=== PATIENT | female | born 1940 | race Caucasian/White ===

== ENCOUNTER → 2022-10-14 15:09 | Outpatient (BNVA) | payer MEDICARE, SELFPAY | PROVIDERS: Visit Provider Orthopaedic Surgery | DX: M75.101 Unspecified rotator cuff tear or rupture of right shoulder, not specified as traumatic (principal) | CPT/HCPCS: 73030; 99203 ==

== ENCOUNTER 2022-11-19 16:05 | Observation (INO) | payer MEDICARE, MEDICAID, SELFPAY ==
[2022-11-18 09:55] VITALS: BMI 35.2
[2022-11-19] VITALS (25 sets, daily range): BP systolic 112–181; BP diastolic 58–104; PULSE 69–90; RESP 13–22; TEMP 36.1–36.6; O2SAT 88–96
[2022-11-19] MEDS: gabapentin 300 mg Capsule PO (09:46)
[2022-11-19] MEDS: sodium chloride 0.9% 1,000 ML 30 ML IV (09:46)
[2022-11-19] MEDS: CELEcoxib 200 mg Capsule 400 MG PO (09:46)
[2022-11-19] MEDS: acetaminophen 500 mg Tablet 1000 MG PO (09:46)
[2022-11-19] MEDS: oxyCODONE 20 mg ER (12 HR) Tablet PO (09:46)
--- NOTE | 2022-11-19 10:10 | W.PM.OPSFHP ---
Same Day Surgery H&P Indication for Procedure/HPI DATE OF PROCEDURE: November 19, 2022 CHIEF COMPLAINT/INDICATIONFOR SURGICAL PROCEDURE: Tear right rotator cuff PREOP DIAGNOSIS: Right rotator cuff tear PLANNED PROCEDURE: Operation Date: 11/19/22 09:55 Proposed Procedures p Shoulder Arthroscopy(Right) - Dieudonne Villanueva MD Mary Luu is a new 81 year old female patient who is here today due to right shoulder pain. Patient has has 3 falls in the last 6 years which has increased her pain with her right shoulder initially falling 6 years ago with a garden and landed hard on her right shoulder.? She described severe pain.? Initially a rotator cuff tear was considered however she improved and chose not to proceed with surgery.? She states that approximately 3 months ago she developed increasing pain.? An MRI was obtained in [place]?on09/02/2022 [facility].? The patient has a moderate-sized retracted full-thickness tear of the supraspinatus tendon.? The radiologist describes the tear approximately 1.5 cm from anterior to posterior with additional tendinopathy of the subscapularis and infraspinatus.? I agree with this assessment.? There is approximately 2 cm of tendon retraction.?? He has been counseled and wants to proceed with rotator cuff repair. She understands the limitations of her age and chronicity of the tear. Medications/Allergies* Home Medications Medication Instructions Recorded Confirmed Type levothyroxine 125 mcg capsule 125 mcg PO DAILY 10/14/22 11/18/22 History naproxen 500 mg tablet 500 mg PO BID 10/14/22 11/19/22 History alendronate 70 mg tablet 70 mg PO DAILY 11/18/22 11/18/22 History aspirin 81 mg tablet,delayed 81 mg PO DAILY 11/18/22 11/18/22 History release ezetimibe 10 mg tablet 10 mg PO DAILY 11/18/22 11/18/22 History gabapentin 100 mg capsule 100 mg PO 11/18/22 History hydrochlorothiazide 12.5 mg tablet 12.5 mg PO DAILY 11/18/22 11/18/22 History ropinirole 1 mg tablet 1 mg PO DAILY 11/18/22 11/18/22 History rosuvastatin 40 mg tablet 40 mg PO DAILY 11/18/22 11/18/22 History pantoprazole 40 mg tablet,delayed 40 mg PO DIRECTED 11/19/22 11/19/22 History release Allergies/Adverse Reactions Allergy/AdvReac Type Severity Reaction Status Date / Time tramadol Allergy ADR-Nausea Verified 11/19/22 08:55 Current Medications: Generic Name Dose Route Start Last Admin Trade Name Dario PRN Reason Stop Dose Admin Sodium Chloride 1,000 mls @ 30 mls/hr 11/19/22 08:45 11/19/22 09:46 Sodium Chloride 0.9% IV 11/20/22 08:44 30 mls/hr .Q24H JANET Administration Pertinent History/Comorbid Conditions* Social History Smoking and tobacco status: never smoked Second hand smoke exposure: No Smoking risk assessment/counseling performed?: No Alcohol intake: never Desire information about alcohol rehabilitation?: No Counseling given: No Substance/Drug Use: never Desire information about substance/drug rehabilitation?: No Counseling given: No Adopted: No Caregiver/support person: No Lives independently: Yes Household members: family Housing: House Number of children: 5 Number of grandchildren: 27 Highest education level completed: 8th Grade service: No Current occupational status: disabled Current occupational exposures/hazards: No Pets and animals: No Sexually active: No Do you think of yourself as: Straight/Heterosexual Current gender identity: Female Special jose juan needs: No Agree to transfusion: No Pertinent Exam Findings alert, oriented x 3, clear to auscultation bilaterally, regular rate & rhythm and operative site marked SHOULDER :? Right shoulder Tenderness anterior and lateral subacromial space ?RANGE OF MOTION:? EXAMINED EXTREMITY ? Flexion: 160 ? External Rotation: 60 ? Abduction External Rotation: 90 ? Abduction Internal Rotation ? 70 ? Pain with all extremes of motion?ROTATOR CUFF STRENGTH: ? EXAMINED EXTREMITY ? Abduction Supination: Weak with pain ? Abduction Pronation: Weak with t pain ? External Rotation: Good without pain ? Belly Press: Negative ?VASCULAR: ?Strong radial pulses bilaterally. Recommendations Surgery/Procedure today Coding Level of Care Code Acute Code for Chg Fwd Diagnoses
--- NOTE | 2022-11-19 10:14 | ANES.PREANE2 ---
Pre-Anesthetic Assessment Height/Weight: Height 1.52 m Weight 81.647 kg Temp Pulse Resp BP Pulse Ox O2 Del Method 97.8 F 80 16 165/104 94 Room Air 11/19/22 09:05 11/19/22 09:05 11/19/22 09:05 11/19/22 09:05 11/19/22 09:05 11/19/22 09:10 Preop Diagnosis: Right rotator cuff tear Operation Date: 11/19/22 09:55 Proposed Procedures p Shoulder Arthroscopy(Right) - Dieudonne Villanueva MD Familial anesthetic complications: None Was Beta Earnestine taken within 24 hours: N/A Was Clonidine taken within 24 hours: N/A Last intake: Intake Last Liquid Date 11/18/22 Last Liquid Time 23:00 Last Solid Date 11/18/22 Last Solid Time 21:00 Social No alcohol and No tobacco Exam alert, oriented x 3, clear to auscultation bilaterally and regular rate & rhythm Airway Mallampati: Class II Dentition: full CV/HEM Hypertension GI Gastroesophageal Reflux Disease Metabolic Hyperlipidemia and Thyroid Disease Anesthetic Plan ASA status: 3 Anesthesia: General and Regional (specify below) Risk of > 500 ml blood loss (7ml/kg in children): No Medications/Allergies Home Medications Medication Instructions Recorded Confirmed Last Taken Type levothyroxine 125 mcg capsule 125 mcg PO DAILY 10/14/22 11/18/22 11/18/22 07:00 History naproxen 500 mg tablet 500 mg PO BID 10/14/22 11/19/22 11/17/22 History power lift chair #1 ea 10/28/22 Unknown Rx alendronate 70 mg tablet 70 mg PO DAILY 11/18/22 11/18/22 11/18/22 History aspirin 81 mg tablet,delayed 81 mg PO DAILY 11/18/22 11/18/22 11/18/22 History release ezetimibe 10 mg tablet 10 mg PO DAILY 11/18/22 11/18/22 11/17/22 History gabapentin 100 mg capsule 100 mg PO 11/18/22 11/17/22 History hydrochlorothiazide 12.5 mg tablet 12.5 mg PO DAILY 11/18/22 11/18/22 11/17/22 History ropinirole 1 mg tablet 1 mg PO DAILY 11/18/22 11/18/22 11/17/22 History rosuvastatin 40 mg tablet 40 mg PO DAILY 11/18/22 11/18/22 11/17/22 History pantoprazole 40 mg tablet,delayed 40 mg PO DIRECTED 11/19/22 11/19/22 Unknown History release Allergies Allergy/AdvReac Type Severity Reaction Status Date / Time tramadol Allergy ADR-Nausea Verified 11/19/22 08:55 Current Medications Generic Name Dose Route Start Last Admin Trade Name Dario PRN Reason Stop Dose Admin Sodium Chloride 1,000 mls @ 30 mls/hr 11/19/22 08:45 11/19/22 09:46 Sodium Chloride 0.9% IV 11/20/22 08:44 30 mls/hr .Q24H JANET Administration PFSH Anesthesia Social History (Updated 10/14/22 @ 15:30 by Alison Kelley LPN) Smoking and tobacco status: never smoked Second hand smoke exposure: No Smoking risk assessment/counseling performed?: No Alcohol intake: never Desire information about alcohol rehabilitation?: No Counseling given: No Substance/Drug Use: never Desire information about substance/drug rehabilitation?: No Counseling given: No Adopted: No Caregiver/support person: No Lives independently: Yes Household members: family Housing: House Number of children: 5 Number of grandchildren: 27 Highest education level completed: 8th Grade service: No Current occupational status: disabled Current occupational exposures/hazards: No Pets and animals: No Sexually active: No Do you think of yourself as: Straight/Heterosexual Current gender identity: Female Special jose juan needs: No Agree to transfusion: No Data Anesthesia Cardiac Studies: No Data to Display
[2022-11-19 10:33] LABS: Anion Gap 14.7 (5-19); Blood Urea Nitrogen 13 mg/dL (8-23); Calcium 8.9 mg/dL (8.5-10.5); Carbon Dioxide 25 mmol/L (22-29); Chloride 105 mmol/L (98-107); Glucose 100 mg/dL (65-115); Osmolality Calculated 290 mOsm/kg (285-295); Potassium 4.7 mmol/L (3.5-5.1); Sodium 140 mmol/L (136-145)
[2022-11-19] MEDS: ceFAZolin 2,000 MG in sodium chloride 0.9% (plus) 50 ML 100 MG IV (11:29)
[2022-11-19] MEDS: EPINEPHrine 1 mg/mL INJ 2 MG XX (12:41)
--- NOTE | 2022-11-19 13:00 | PM.OP ---
Operative Report Date of procedure: November 19, 2022 Pre-op diagnosis: Preop Diagnosis Right rotator cuff tear, right impingemen t Post-op diagnosis: same Procedure done: Arthroscopic repair right rotator cuff, arthroscopic right subacromial decompression Implants: Kowalski [employer] Nephew Helicoil 5.5x2, Kowalski [employer] Nephew Multifix 5.5x1 Pathology: none sent Surgeon: Dieudonne Villanueva Anesthesia: General and Nerve Block (Interscalene block) Estimated blood loss (mL): 25 Complications: None Findings: The patient had a full-thickness rotator cuff tear approximately 2 cm from anterior to posterior with approximately a centimeter half of medial retraction, beginning just posterior to the biceps tendon. Tendon and bone quality were reasonable. She had prominent subacromial spurring. There is no degenerative changes of the humeral head or glenoid. The biceps tendon and labrum appeared healthy. Condition: stable Disposition: PACU Brief History: 89-year-old female with a 6-year history of right shoulder pain after a fall and a MRI showing full-thickness tearing of the rotator cuff. She failed a conservative program of physical therapy and medical management. She since has seen me and a decision was made to proceed with arthroscopic rotator cuff repair. She was counseled as to the increased risks of graft failure owing to her age, bone quality, and tendon quality, particular with the duration of the tear Procedure: The patient was given a interscalene block in holding. She was taken to the OR where she was given 2 g of Ancef. She was prepped and draped in the lateral position with the right arm exposed. A timeout was performed. The shoulder was initially entered through a posterior portal by 2 cm inferior medial to the posterior corner of the acromion. An anterior working portal was made in the rotator interval just beneath the biceps. The diagnostic portion arthroscopy was performed. The rotator cuff tear was noted. No degenerative changes of the humeral head or glenoid were noted. She had no obvious tears of her labrum and her biceps tendon appeared to be intact. The scope was then directed to the subacromial space. The lateral Cannula was directed into the subacromial space and additional lateral portal was made. Working through the lateral portal of the Kowalski and Nephew Werewolf cautery was used to remove bursal tissue and better outlined the tear. Leading edge of the acromion was outlined revealing fairly prominent anterior spurring. A 5.5 mm acromionizer was introduced to the lateral portal and approximately 5 mm of anterior and inferior acromion were removed. The footprint of the supraspinatus insertion was debrided with incisor shaver very lightly the punctate bleeding but efforts were made to minimize damage to the stronger subchondral bone. Through a more medial stab wound an initial Kowalski and Nephew Helicoil 5.5 mm anchor was placed along the medial edge of the anterior rotator cuff insertion. A [employer] FirstPass suture passer was used to shuttle each limb of tape through the rotator cuff approximately 8 mm from the edge, approximately 5 mm apart. A second Kowalski and Nephew Helicoil anchor was placed in the posterior medial footprint and those sutures passed in identical fashion. They were secured with a sliding Kern knot and alternating half hitches drawing the medial cuff to bone. All sutures was then drawn out the lateral cannula. They were passed through a singular MultiFix anchor. A MultiFix anchor was then placed just lateral to the edge of the tuberosity and the suture secured drawing the lateral rotator cuff to bone. The ostomy clip was removed. Portals were closed with 3-0 Prolene. Sterile dressings were applied. The patient was placed in a sling, extubated, and taken to recovery room in stable condition.
--- NOTE | 2022-11-19 13:27 | SUR.PHASEI ---
1328 oral airway removed at this time. spo2 95% on simple mask at 6L
[2022-11-19] MEDS: ondansetron 2 mg/ML SDV 2 mL 4 MG IVP ×2 (13:40→13:59)
--- NOTE | 2022-11-19 15:17 | XR_ITS ---
WS: [id number] Portable AP upright chest, 11/19/2022 Clinical Data: acute dyspnea. Comparison: None. Findings: Heart is enlarged and the pulmonary vascularity is increased. No pneumothorax or pneumonia seen. There are no nodules, masses or effusions. The aortic arch and descending thoracic aorta show t ortuosity. There is an orthopedic anchor in the left shoulder. XR/XR chest 1V portable [id number] Impression: Pulmonary vascular congestion and cardiomegaly consistent with congestive heart failure.
[2022-11-19] MEDS: albuterol 2.5 mg/3 mL Neb INHALATION (15:22)
--- NOTE | 2022-11-19 15:40 | SUR.PHASEII ---
15:00 PATIENT'S SATS REMAIN 90-92% ON 3L/M. LUNG SOUNDS REVEAL BILATERAL RALES AND FAINTED WHEEZES. 15:22 ALBUTEROL BREATHING TREATMENT GIVEN. PATIENT APPEARS NOT TO BE VENTILATING WELL.
--- NOTE | 2022-11-19 15:52 | SUR.PHASEII ---
15:30 DOCTOR FAB INFORMED OF PATIENT'S CONDITION. CHEST X RAY ORDERED AND DOCTOR Lukasz CALLED TO EVALUATE PATIENT.
--- NOTE | 2022-11-19 15:54 | SUR.PHASEII ---
15:45 NO IMPROVEMENT AFTER NEBULIZER TREATMENT. PATIENT TO BE ADMITTED. PLAN OF CARE EXPLAINED TO PATIENT AND FAMILY MEMBER. PLACED ON FACE MASK AT 8L/M BY DOCTOR COSTELLO.
--- NOTE | 2022-11-19 16:15 | USCV_ITS ---
Mary Luu Age: 82 Gender: F : 1940 Exam Date: 11/19/2022 17:32 Ordering Phys: Bo Oseguera MD Technologist: Shay Eagle Exam Location: [facility] [place] Indication: chf BP: 125 / 66 HR: 87 Rhythm: Sinus Technical Quality: Adequate MEASUREMENTS (Male / Female) Normal Values 2D ECHO LV Diastolic Diameter PLAX 2.5 cm 4.2 - 5.9 / 3.9 - 5.3 cm LV Systolic Diameter PLAX 1.5 cm IVS Diastolic Thickness 0.9 cm 0.6 - 1.0 / 0.6 - 0.9 cm IVS Systolic Thickness 1.1 cm LVPW Diastolic Thickness 0.9 cm 0.6 - 1.0 / 0.6 - 0.9 cm LVPW Systolic Thickness 1.1 cm LVOT Diameter 2.0 cm LV Ejection Fraction 2D Teich 74.7 % LV Ejection Fraction MOD 2C 68.4 % LV Ejection Fraction 2C AL 67.8 % LA Diameter 2.8 cm M-MODE Aortic Annulus Diameter 3.0 cm LA Ao Ratio MM 1.0 MV E Point Septal Separation 1.0 cm DOPPLER AV Peak Velocity 284.0 cm/s LVOT Peak Velocity 161.0 cm/s AV Area Cont Eq vti 2.1 cm squared AV Area Cont Eq pk 1.8 cm squared MV Area PHT 5.0 cm squared Mitral E to A Ratio 0.5 MV E' Velocity 64.0 cm/s Mitral E to LV E' Septal Ratio 14.8 TR Peak Velocity 379.5 cm/s TR Peak Gradient 57.6 mmHg TV Peak E Velocity 89.3 cm/s Right Atrial Pressure 3.0 mmHg Pulmonary Artery Systolic Pressu 60.6 mmHg FINDINGS Left Ventricle Technically very limited quality echocardiogram because of poor ultrasonic windows. LV systolic function is normal with EF of 60 to 65%. No regional wall motion abnormalities are seen. LV wall appears to be thick. Right Ventricle Normal in size and function Right Atrium Normal in size Left Atrium Normal in size Mitral Valve Not well-visualized. Mild mitral regurgitation Aortic Valve Not well-visualized. Gradients are elevated across the LVOT. 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 Velocities close to 6 m/s seen but are suboptimally captured. Tricuspid Valve Trace tricuspid regurgitation. Insufficient TR jet to calculate RVSP Pulmonic Valve Not well-visualized Pericardium Grossly normal Aorta Not well visualized IVC Not well visualized CONCLUSIONS Technically very limited quality echocardiogram because of poor ultrasonic windows. LV systolic function is normal with EF of 60 to 65%. Mild mitral regurgitation. Valvular structures are not visualized. Gradients are elevated across the LVOT. 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 Velocities close to 6.2/s seen but are suboptimally captured because of poor visualization and technically very difficult study. No comparison studies are available. Antony Mojica MD (Electronically Signed) Final Date: 20 November 2022 08:26 S
--- NOTE | 2022-11-19 16:16 | ECG_ITS ---
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 Measurements Intervals [place] Rate: 78 P: 22 LA: 192 QRS: -2 QRSD: 86 T: 48 QT: 382 QTc: 437 Interpretive Statements SINUS RHYTHM WITH FREQUENT SUPRAVENTRICULAR PREMATURE COMPLEXES ABNORMAL RHYTHM ECG No previous ECG available for comparison Electronically Signed On 11-19-2022 17:59:14 CDT by Antony Mojica M.D. [id number]
--- NOTE | 2022-11-19 16:48 | ANE.PACU2 ---
Inpatient post-anesthesia follow up: Airway intact: Yes Vital signs: Temperature 98.2 F Pulse Rate 72 Respiratory Rate 16 Blood Pressure 132/68 Pulse Oximetry 95 Oxygen Delivery Me thod [ Nasal Cannula Current Rate & Del delaney] Oxygen Delivery Me thod Nasal Cannula Oxygen Flow Rate [ Current Rate 2 & Delivery] Oxygen Flow Rate 2 Fraction of Inspir ed Oxygen Hydration adequate: Yes Nausea and vomiting: Yes Pain level: 1 Mental status: Baseline Additional Comments: Patient w/ DOSHI and low O2 sat on nasal canula. CXR reveals fluid overload. Admitted under hospitalist service
[2022-11-19] MEDS: FUROsemide 10 mg/mL SDV 4mL 40 MG IVP (16:49)
--- NOTE | 2022-11-19 16:56 | SUR.PHASEII ---
16:55 REPORT CALLED TO ARMEN ALDRIDGE. EKG DONE ELVIRA IN. IV LASIX GIVEN.
--- NOTE | 2022-11-19 17:37 | PM.CONSULT ---
Providers/Reason For Consult Consulting Physician/Specialty*: Bo Oseguera MD, hospitalist Reason for Consult*: Dyspnea Attending Physician: Dieudonne Villanueva MD Primary Care Provider: Erlin Niño DO History of Present Illness History of Present Illness Mary Luu is a 82 year old female who underwent arthroscopic repair of her rotator cuff today. Postoperatively, dyspnea was noted. Patient was seen using her daughter as an lang interpreter. The patient and daughter both desired this. She reported some chest pressure as well that have been going on since she woke up. Occasional cough. No radiation of discomfort. Had some nausea but now this is resolved. No vomiting, diarrhea. Nurse relates to me that she has had 1.5 L and IV fluids. Daughter reports she is occasionally short of breath at home with exertion, and has some chronic trace edema in her ankles. No history of heart or lung problems. Review of Systems General: Reports: 10 or more systems reviewed and unremarkable except in HPI and below Card: Reports: chest pain and swelling of feet/ankles Resp: Denies: productive cough or non-productive cough GI: Denies: hematochezia or melena Medications/Allergies Home Medications Medication Instructions Recorded Confirmed Last Taken Type levothyroxine 125 mcg capsule 125 mcg PO DAILY 10/14/22 11/18/22 11/18/22 07:00 History naproxen 500 mg tablet 500 mg PO BID 10/14/22 11/19/22 11/17/22 History power lift chair #1 ea 10/28/22 Unknown Rx alendronate 70 mg tablet 70 mg PO DAILY 11/18/22 11/18/22 11/18/22 History aspirin 81 mg tablet,delayed 81 mg PO DAILY 11/18/22 11/18/22 11/18/22 History release ezetimibe 10 mg tablet 10 mg PO DAILY 11/18/22 11/18/22 11/17/22 History gabapentin 100 mg capsule 100 mg PO 11/18/22 11/17/22 History hydrochlorothiazide 12.5 mg tablet 12.5 mg PO DAILY 11/18/22 11/18/22 11/17/22 History ropinirole 1 mg tablet 1 mg PO DAILY 11/18/22 11/18/22 11/17/22 History rosuvastatin 40 mg tablet 40 mg PO DAILY 11/18/22 11/18/22 11/17/22 History hydrocodone 5 mg-acetaminophen 325 1 tab PO Q4H #30 tabs 11/19/22 Unknown Rx mg tablet pantoprazole 40 mg tablet,delayed 40 mg PO DIRECTED 11/19/22 11/19/22 Unknown History release Allergies Allergy/AdvReac Type Severity Reaction Status Date / Time tramadol Allergy ADR-Nausea Verified 11/19/22 08:55 PFSH Acute PFSH: Medical History (Updated 11/19/22 @ 17:42 by Bo Oseguera MD) Cataract High cholesterol Hypertension Hypothyroid Surgical History (Updated 11/19/22 @ 17:40 by Bo Oseguera MD) History of carpal tunnel release History of cholecystectomy Social History (Updated 10/14/22 @ 15:30 by Alison Kelley LPN) Smoking and tobacco status: never smoked Second hand smoke exposure: No Smoking risk assessment/counseling performed?: No Alcohol intake: never Desire information about alcohol rehabilitation?: No Counseling given: No Substance/Drug Use: never Desire information about substance/drug rehabilitation?: No Counseling given: No Adopted: No Caregiver/support person: No Lives independently: Yes Household members: family Housing: House Number of children: 5 Number of grandchildren: 27 Highest education level completed: 8th Grade service: No Current occupational status: disabled Current occupational exposures/hazards: No Pets and animals: No Sexually active: No Do you think of yourself as: Straight/Heterosexual Current gender identity: Female Special jose juan needs: No Agree to transfusion: No Other PFSH information: Supplemental PFSH Information: Denies any significant family history. Vitals/I&O/Wt Last Vital Signs Temp 97.5 F L 11/19/22 14:22 Pulse 90 11/19/22 16:45 Resp 20 H 11/19/22 16:45 BP 131/88 11/19/22 16:45 Pulse Ox 91 11/19/22 16:45 O2 Del Method Simple Mask 11/19/22 16:45 O2 Flow Rate 6 11/19/22 16:45 11/19/22 11/19/22 11/19/22 06:59 14:59 22:59 Intake Total 2450 / 2450 Output Total 5 / 5 Balance 2445 / 2445 Weight last 48 hrs Weight 81.647 kg Physical Exam Urinary Catheter Management: Bill: Cath Placed During This Visit: no Data 11/19/22 10:10 Other Labs: EKG demonstrates sinus rhythm, occasional premature beat, left axis deviation, nonspecific ST-T wave changes by my review Chest x-ray demonstrates pulmonary edema per my review I have ordered a troponin series, BMP I have ordered a TSH, BMP, echocardiogram A&P Assessment and plan (1) CHF (congestive heart failure): Patient has evidence of acute congestive heart failure, likely diastolic Lasix 40 mg IV given. BMP in the morning and reassess for further dosing IV fluids discontinued Cardiac diet Check echocardiogram, BNP, CMP, magnesium level, CBC Observation Bill catheter placed to monitor ins and outs. (2) Chest pain: Troponin series and EKG Echo as above Plan Directly postoperative surgery for rotator cuff repair Consult Attestations Medical Necessity Statement: Will require less than 2 midnight stay for evaluation and treatment of acute congestive heart failure. Diagnoses CHF (congestive heart failure) I50.9 Chest pain R07.9 Time Spent (min) 48
[2022-11-19 17:51] LABS: Basophils % 0.2 %; Eosinophils % 0.1 %; Hematocrit 42.3 % (37.0-47.0); Hemoglobin 13.9 g/dL (11.5-15.3); Lymphocytes # 0.8 10^3/uL (0.8-4.8); Mean Corpuscular HGB Conc 32.9 g/dL (30.0-36.0); Mean Corpuscular Hemoglobin 30.7 pg (28.0-34.0); Mean Corpuscular Volume 93.4 fl (81-99); Mean Platelet Volume 11.7 fL (7.4-10.4); Monocytes # 0.1 10^3/uL (0.2-0.9); Monocytes % 0.8 %; Neutrophils % 91.6 %; Nucleated Red Blood Cells % 0 %; Platelet Count 177 10^3/cmm (130-400); Red Blood Count 4.53 10^6/uL (4.1-5.3); Red Cell Distribution Width 13.2 % (12.1-15.1); White Blood Count 10.9 10^3/uL (4.0-10.0)
[2022-11-19 18:09] LABS: Troponin(5th) Baseline 12 ng/L (0-10)
[2022-11-19] MEDS: perflutren protein-a microsphr 0.22 mg/mL SDV 3 mL IV (18:12)
--- NOTE | 2022-11-19 18:16 | ECG_ITS ---
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 Measurements Intervals [place] Rate: 88 P: 33 NH: 252 QRS: -3 QRSD: 83 T: 29 QT: 370 QTc: 450 Interpretive Statements SINUS RHYTHM WITH FIRST DEGREE AV BLOCK Compared to ECG 11/19/2022 16:43:17 First degree AV block now present Electronically Signed On 11-19-2022 17:59:31 CDT by Antony Mojica M.D. [id number]
[2022-11-19 18:17] LABS: Alanine Aminotransferase 25 U/L (0-33); Albumin Level 3.7 g/dL (3.5-5.2); Alkaline Phosphatase 79 U/L (35-105); Anion Gap 18.4 (5-19); Aspartate Amino Transferase 25 U/L (0-32); Blood Urea Nitrogen 15 mg/dL (8-23); Calcium 8.4 mg/dL (8.5-10.5); Carbon Dioxide 19 mmol/L (22-29); Chloride 105 mmol/L (98-107); Globulin 3.2 g/dL (1.3-4.6); Glucose 170 mg/dL (65-115); Magnesium 1.7 mg/dL (1.7-2.3); NT Pro B Type Natriuretic Pept 345 pg/mL (0-450); Osmolality Calculated 293 mOsm/kg (285-295); Potassium 3.4 mmol/L (3.5-5.1); Sodium 139 mmol/L (136-145); Thyroid Stimulating Hormone 0.89 uIU/mL (0.27-4.20); Total Bilirubin 0.2 mg/dL (0.15-1.2); Total Protein 6.9 g/dL (6.6-8.7)
[2022-11-19] MEDS: potassium chloride ER 20 mEq Tablet 40 MEQ PO (20:07)
[2022-11-19] MEDS: enoxaparin 40 mg/0.4 mL Syringe SUBCUT (20:07)
[2022-11-19 20:51] LABS: Estmated Average Glucose 126
--- NOTE | 2022-11-19 22:54 | ECG_ITS ---
[facility] Test Date: 2022-11-19 Pat Name: Mary Luu Department: Room: 262 Gender: Female Reception: : 1940 Requested By: Bo Tillman Order Number: [id number] Reading MD: Antony Mojica M.D. Measurements Intervals [place] Rate: 84 P: 35 CO: 261 QRS: 7 QRSD: 85 T: 53 QT: 360 QTc: 427 Interpretive Statements SINUS RHYTHM WITH FIRST DEGREE AV BLOCK NONSPECIFIC T-WAVE ABNORMALITY Compared to ECG 11/19/2022 17:52:26 T-wave abnormality now present Electronically Signed On 11-20-2022 10:29:20 CDT by Antony Mojica M.D. [id number]
[2022-11-20] VITALS (8 sets, daily range): BP systolic 115–132; BP diastolic 62–68; PULSE 68–77; RESP 16–18; TEMP 36.7–37; O2SAT 91–97
[2022-11-20] MEDS: oxyCODONE 5 mg IR Tab/Cap PO (05:40)
[2022-11-20 06:16] LABS: Troponin 5 6HR 12.26 ng/L (0-10)
[2022-11-20 06:19] LABS: Troponin 5 6HR Delta 0.26 ng/L (0-12)
[2022-11-20 06:41] LABS: Anion Gap 15.9 (5-19); Carbon Dioxide 19 mmol/L (22-29); Chloride 108 mmol/L (98-107); Potassium 4.9 mmol/L (3.5-5.1); Sodium 138 mmol/L (136-145)
[2022-11-20 06:42] LABS: Blood Urea Nitrogen 13 mg/dL (8-23); Calcium 8.1 mg/dL (8.5-10.5); Glucose 100 mg/dL (65-115); Osmolality Calculated 286 mOsm/kg (285-295)
[2022-11-20] MEDS: aspirin 81 mg EC Tablet PO (08:03)
[2022-11-20] MEDS: levothyroxine 125 mcg Tablet PO (08:03)
[2022-11-20] MEDS: atorvastatin 40 mg Tablet 80 MG PO (08:03)
[2022-11-20] MEDS: acetaminophen 325 mg Tablet 650 MG PO (08:07)
[2022-11-20] MEDS: FUROsemide 40 mg Tablet PO (09:37)
--- NOTE | 2022-11-20 10:11 | P.PN_ITS ---
Subjective Subjective: Did well overnight. Feeling much better. I turned off her oxygen and she seems to be maintaining a saturation of around 92%. She does not feel short of breath. She denies any chest discomfort. Medications: Reviewed: Yes Vitals/I&O/Wt Last Vital Signs Temp 98.2 F 11/20/22 08:00 Pulse 72 11/20/22 08:08 Resp 16 11/20/22 08:00 BP 132/68 11/20/22 08:00 Pulse Ox 95 11/20/22 08:08 O2 Del Method Nasal Cannula 11/20/22 08:08 O2 Flow Rate 2 11/20/22 08:08 11/19/22 11/20/22 11/20/22 22:59 06:59 14:59 Intake Total 120 / 2570 480 / 3050 240 / 240 Output Total 1200 / 1205 600 / 1805 Balance -1080 / 1365 -120 / 1245 240 / 240 Physical Exam Narrative: General exam is no apparent distress Neck is supple Cardiovascular regular rate and rhythm Lungs clear no wheezing or crackles Abdomen is soft Extremities trace edema Urinary Catheter Management: Bill: Cath Placed During This Visit: no Reason for Continuing Indwelling Catheter: Perioperative Use in Selected Surgeries Data 11/19/22 17:30 11/20/22 05:46 A&P Assessment and plan (1) CHF (congestive heart failure): Patient has evidence of acute congestive heart failure, likely diastolic Echo was of poor quality but demonstrates likely preserved EF. Question of hypertrophic cardiomyopathy. Will need follow-up. Lasix 40 mg IV given on my evaluation. She is now weaned off to room air. Cardiac diet on discharge Follow-up with her primary care provider 3 to 5 days with BMP. Consideration of cardiology referral at that time. Troponins were checked and flat. No evidence of myocardial infarction. May discontinue Bill catheter on discharge. We will discontinue her hydrochlorothiazide. Placed on Lasix 40 mg a day with potassium 10 mill equivalents a day. Patient and family member reported chronic ankle edema. Chronically some shortness of breath with exertion. (2) Chest pain: Resolved with diuresis No evidence of myocardial infarction Echo as above Plan Directly postoperative surgery for rotator cuff repair Attestations Medical Necessity Statement*: As per primary Coding Level of Care Code 13177 Moderate MDM includes number and complexity of problems actively addressed during encounter and amount and/or complexity of data reviewed/ordered as docu mented Diagnoses CHF (congestive heart failure) I50.9 Chest pain R07.9 Time Spent (min) 37
--- NOTE | 2022-11-20 10:29 | PC.CHAP ---
Pastoral Care Encounter/Spiritual Assessment Type of Contact [] Declined activity coordinator visit [] Patient/Family/Request visit [] Outpatient visit [] Follow-up visit [] Physician referral [] Code/Alert x[] Routine visit [] Staff referral [] Actively dying [] Patient sleeping [x] Family support [] [] Out of room [] Palliative care [] [] Receiving care in room [] Pre-surgical visit [] Trauma [] Long length of stay [] ICU visit [] Other: Relational/Emotional Strength x[] Patient feels connected with others/family/visitors/staff [] Distress [] Loneliness/isolation [] Abandonment Spirituality of Patient [x] Person of Felicia [] Attends Synagogue of their Felicia [x] Believes in Prayer [x Reads Bible or Alevism materials [] There are Spiritual issues to be addressed Unit Trust Manager Interventions x] Non-anxious presence [] Spiritual/emotional support [] Crisis/trauma care [] Spiritual counseling [] Bereavement support [] Provided bereavement packet [] Provided Bible/devotional materials [] Provided toy/stuffed animal, coloring book to patient or family member [] Provided Communion [] Anointing/[place] [] Salvation [x] Completed spiritual assessment [] Other: Impact on Illness or Injury [] Angry [] Fearful [] Anxious [] Often cries [] Exhaustion [] Unable to work [] Unable to attend mosque [] Unable to walk/stand [] Unable to read [] Unable to drive [] Unable to eat/drink [] Unable to sleep [] Unable to be with family [] Patient intubated [] Other: Summary Time spent with patient 15 min
--- NOTE | 2022-11-20 12:36 | PC.NURSE ---
Surgical dressing removed by Dr. Villanueva. Five band-aids placed over surgical incisions per orders. IV to left wrist removed. Pt dressed and accompanied by daughter. Discharge paperwork completed. In-depth education given on medication changes. Dressed and wheeled to private vehicle. All belongings sent with patient.
== END 2022-11-20 12:43 | disposition home or self-care (01) ==
LOC: MEDSURG 16:05
PROVIDERS: Anesthesiology; Admitting Provider Internal Medicine; PCP Internal Medicine; Visit Provider Orthopaedic Surgery
PROC: (CPT 29805; principal; 2022-11-19 09:45)
PROC: (CPT 29827; 2022-11-19 09:45)
DX: M75.101 Unspecified rotator cuff tear or rupture of right shoulder, not specified as traumatic (principal); M25.811 Other specified joint disorders, right shoulder; I11.0 Hypertensive heart disease with heart failure; I50.9 Heart failure, unspecified; I44.0 Atrioventricular block, first degree; E03.9 Hypothyroidism, unspecified; K21.9 Gastro-esophageal reflux disease without esophagitis; E78.5 Hyperlipidemia, unspecified; Z79.82 Long term (current) use of aspirin; Z91.81 History of falling; I34.0 Nonrheumatic mitral (valve) insufficiency; Z79.899 Other long term (current) drug therapy
CPT/HCPCS: 29826; 29827; 36415; 51702; 71045; 80048; 80053; 83036; 83735; 83880; 84443; 84484; 85025; 93005; 96372; C1713; C8929; G0378; J0171; J0690; J1100; J1650; J1940; J2405; J2704; J2795; J3010; J3490; J7030; J7613; Q9956

== ENCOUNTER → 2022-12-02 14:29 | Outpatient (BNVA) | payer MEDICARE, MEDICAID, SELFPAY | PROVIDERS: PCP Internal Medicine; Visit Provider Orthopaedic Surgery | DX: M75.101 Unspecified rotator cuff tear or rupture of right shoulder, not specified as traumatic (principal) | CPT/HCPCS: 99024 ==